=== PATIENT | female | born 1960 | race Caucasian/White ===

== ENCOUNTER 2016-05-05 12:29 | Emergency (ER) | payer OTHER ==
[~2016-05-05] VITALS: Ht 149.9 cm; Wt 106.9 kg
[~2016-05-05 12:29] MED LIST: AZITTAB PO; BENZ1CAP90 PO; NAPROXEN
[2016-05-05 12:50] VITALS: TEMP 37.1; Ht 149.9 cm; Wt 106.9 kg
[2016-05-05] MEDS ORDERED: KETOROLAC TROMETHAMINE 30 MG/ML VIAL IV STA (13:31)
[2016-05-05] MEDS ORDERED: SODIUM CHLORIDE 0.9% 500ML 500 ML IV STA (13:31)
[2016-05-05] MEDS ORDERED: DiphenhydrAMINE HCL 50 MG/ML VIAL IV STA (13:31)
[2016-05-05] MEDS ORDERED: PROCHLORPERAZINE 5 MG/ML 2 ML VIAL IV STA (13:31)
[2016-05-05] MEDS ORDERED: SODIUM CHLORIDE 0.9% 1000ML 1,000 ML IV STA (13:31)
[2016-05-05] MEDS ORDERED: PRLSR20 PO (13:43)
--- NOTE | 2016-05-05 13:57 | EMERGENCY ROOM VISIT NOTE ---
History Report prepared by Jevon: Anthony Glaser Under the Supervision of: Dr. Mary Grace Mosley M.D. First contact with patient: 13:20 Chief Complaint: HEADACHE Stated Complaint: FAINTED, HEADACHE History of Present Illness The patient is a 56 year old female who presents to the Emergency Room after a syncopal episode that occurred prior to arrival. The patient was at [facility] when she started to feel hot and lightheaded. The patient does not remember the episode of fainting, but per patient's she had been standing for about 20 minutes when she passed out and fell to the floor on her side. He denies that the patient hit her head. The patient notes that she had a headache before the episode and still complains of a headache now. She describes the headache as a tension headache and says it feels like something is "squeezing" her head. She also complains of some neck discomfort. The patient notes that she has been under a lot of stress recently and has not been eating or sleeping normally since she is upset. The patient does not recall feeling chest pain or shortness of breath before the episode. She denies any pain at this time. The patient notes that the only time the patient has passed out in the past was when she was a teenager and once when she was . Source of History: patient, spouse/significant other Onset: prior to arrival Position: other (global) Associated Symptoms: + headache, + neck pain, No SOB, No chest pain Note: Other associated symptoms: felt hot, lightheaded, Denies: hitting her head, pain Review of Systems See HPI for pertinent positives & negatives. A total of 10 systems reviewed and were otherwise negative. Past Medical & Surgical Medical Problems: (1) Asthma (2) Bronchitis (3) Hypertension (4) Pneumonia Family History Diabetes mellitus FH: hypertension Social History Smoking Status: Never Smoker Marital Status: Housing Status: other ([facility] temporarily) Occupation Status: employed Current/Historical Medications Scheduled Omeprazole (Prilosec), 20 MG PO DAILY Allergies Coded Allergies: Aspirin (Unverified Allergy, Mild, 05/05/16) Penicillins (Unverified Allergy, Mild, 05/05/16) Tetanus Immune Globulin (Unverified Allergy, Mild, 05/05/16) Uncoded Allergies: KEFLEX (Allergy, Mild, 06/18/07) Physical Exam Vital Signs Date Time Temp Pulse Resp B/P Pulse Ox O2 Delivery O2 Flow Rate FiO2 05/05/16 15:30 73 18 198/115 97 Room Air 05/05/16 15:17 18 168/92 05/05/16 14:57 71 05/05/16 12:50 37.1 74 20 184/117 97 Room Air Physical Exam Vital signs reviewed. General: Well-appearing female, in no significant distress. HEENT: No scleral icterus, PERRLA, neck supple. Atraumatic. Cardiovascular: Regular rate and rhythm, no extra sounds. Pulmonary: Clear to auscultation bilaterally, normal work of breathing. Abdomen: Soft, nontender, nondistended, positive bowel sounds. Musculoskeletal: Atraumatic, no peripheral edema. Mild tenderness along cervical spine without stepoff or deformity. Neurologic: Patient awake alert and oriented x 3, full strength in all 4 extremities. Cranial nerves 2 through 12 grossly intact. Neurologically intact. No meningeal signs. Skin: Warm, dry, no rash Medical Decision & Procedures ER Provider Diagnostic Interpretation: CT results as stated below per my interpretation and radiologist interpretation. Other radiology results as stated below per my review and radiologist interpretation: HEAD CT NONCONTRAST CT DOSE: 1092.12 mGy.cm HISTORY: Mental status change headache TECHNIQUE: Multiaxial CT images of the head were performed without the use of intravenous contrast. Comparison: None. Findings: The paranasal sinuses and mastoid air cells are clear. The calvarium and skull base are intact. The ventricles and sulci are within normal limits. There is no mass, hematoma, midline shift, or acute infarct. Impression: No acute intracranial abnormality. Electronically signed by: Kurt Pimentel M.D. 05/05/2016 2:38 PM Dictated Date/Time: 05/05/2016 2:[address] OF THE CERVICAL SPINE WITHOUT CONTRAST CLINICAL HISTORY: Neck pain after syncope COMPARISON STUDY: No previous studies for comparison. TECHNIQUE: Helical axial images of the cervical spine were obtained without IV contrast. Sagittal and coronal reconstructions were viewed. FINDINGS: There is straightening of the normal cervical lordosis. Craniocervical junction is intact. There is no acute fracture. There is moderate multilevel degenerative disc disease and facet arthrosis of the cervical spine. There is no prevertebral edema. IMPRESSION: No acute cervical spine fracture or subluxation. Electronically signed by: Jorge Ibarra M.D. 05/05/2016 2:48 PM Dictated Date/Time: 05/05/2016 2:39 PM Laboratory Results 05/05/16 12:45 Red Blood Count 5.09, Mean Corpuscular Volume 86.4, Mean Corpuscular Hemoglobin 30.6, Mean Corpuscular Hemoglobin Concent 35.5, Mean Platelet Volume 10.8, Neutrophils (%) (Auto) 72.1, Lymphocytes (%) (Auto) 18.5, Monocytes (%) (Auto) 7.4, Eosinophils (%) (Auto) 1.6, Basophils (%) (Auto) 0.2, Neutrophils # (Auto) 4.50, Lymphocytes # (Auto) 1.15, Monocytes # (Auto) 0.46, Eosinophils # (Auto) 0.10, Basophils # (Auto) 0.01 05/05/16 12:45 Test 05/05/16 12:45 White Blood Count 6.23 K/uL (4.8-10.8) Red Blood Count 5.09 M/uL (4.2-5.4) Hemoglobin 15.6 g/dL (12.0-16.0) Hematocrit 44.0 % (37-47) Mean Corpuscular Volume 86.4 fL (80-100) Mean Corpuscular Hemoglobin 30.6 pg (25-34) Mean Corpuscular Hemoglobin Concent 35.5 g/dl (32-36) Platelet Count 271 K/uL (130-400) Mean Platelet Volume 10.8 fL (7.4-10.4) Neutrophils (%) (Auto) 72.1 % Lymphocytes (%) (Auto) 18.5 % Monocytes (%) (Auto) 7.4 % Eosinophils (%) (Auto) 1.6 % Basophils (%) (Auto) 0.2 % Neutrophils # (Auto) 4.50 K/uL (1.4-6.5) Lymphocytes # (Auto) 1.15 K/uL (1.2-3.4) Monocytes # (Auto) 0.46 K/uL (0.11-0.59) Eosinophils # (Auto) 0.10 K/uL (0-0.5) Basophils # (Auto) 0.01 K/uL (0-0.2) RDW Standard Deviation 44.1 fL (36.4-46.3) RDW Coefficient of Variation 14.0 % (11.5-14.5) Immature Granulocyte % (Auto) 0.2 % Immature Granulocyte # (Auto) 0.01 K/uL (0.00-0.02) Anion Gap 9.0 mmol/L (3-11) Est Creatinine Clear Calc Drug Dose 94.8 ml/min Estimated GFR () 109.6 Estimated GFR (Non- 94.6 BUN/Creatinine Ratio 13.6 (10-20) Calcium Level 9.6 mg/dl (8.5-10.1) Total Bilirubin 0.6 mg/dl (0.2-1) Direct Bilirubin 0.1 mg/dl (0-0.2) Aspartate Amino Transf (AST/SGOT) 10 U/L (15-37) Alanine Aminotransferase (ALT/SGPT) 22 U/L (12-78) Alkaline Phosphatase 111 U/L (45-117) Total Protein 8.2 gm/dl (6.4-8.2) Albumin 4.2 gm/dl (3.4-5.0) Laboratory results per my review. Medications Administered Medications (Trade) Dose Ordered Sig/Deven Route Start Time Stop Time Status Last Admin Dose Admin Sodium Chloride 500 ml @ 999 mls/hr Q31M STAT IV 05/05/16 13:31 05/05/16 14:01 DC 05/05/16 14:20 999 MLS/HR Sodium Chloride (Nss 1000ml) 1,000 ml @ 125 mls/hr Q8H STAT IV 05/05/16 13:31 05/05/16 15:41 DC 05/05/16 14:20 125 MLS/HR Ketorolac Tromethamine (Toradol Inj) 30 mg NOW STAT IV 05/05/16 13:31 05/05/16 13:34 DC 05/05/16 14:20 30 MG ECG Indication: syncope Rate (beats per minute): 66 Rhythm: normal sinus Findings: nonspecific-ST abn (Anterolateral), no acute ischemic change, no ectopy, other (possible previous inferior infarct) ED Course 1322: Past medical records reviewed. The patient was evaluated in room C11. A complete history and physical examination was performed. 1331: Ordered Toradol Inj 30 mg IV, NSS 1000 ml @ 125 mls/hr IV, NSS 500 ml @ 999 mls/hr IV, Benadryl Inj 25 mg IV, Compazine Inj 10 mg IV. 1501: At this time, I reevaluated the patient and she stated that she did not want any pain medication for her headache because she had to drive later today. 1527: Upon reevaluation, I discussed findings with her. She verbalized agreement of the treatment plan. The patient was discharged home. Medical Decision Differential Diagnoses: Etiologies such as vasovagal event, infection, hypoglycemia, electrolyte abnormalities, cardiac sources, intracerebral event, toxicologic, neurologic, syncope, intracranial mass, hemorrhage, seizure, migraine as well as others were entertained. This patient was evaluated and appeared to be in no significant distress. IV access was obtained and laboratory work was drawn. The patient was placed on the cardiac sonographer and found to be in a normal sinus rhythm. Physical examination is fairly unrevealing. CT scan of the head was performed and is negative for acute intracranial pathology. CT scan of the neck is negative for acute fracture or malalignment. Patient refused any medications as she plans to drive. She was hydrated with normal saline solution however did not have significant resolution of her headache. She states it is no worse and no better. The patient feels comfortable with the plan for discharge. She was advised to use Tylenol or ibuprofen as needed for headache. The episode may be situational she is currently living in a homeless assisted. She was advised to contact [facility] for reevaluation, particularly of her headache and blood pressure. She will return to the ER for worsening of symptoms or any medical concerns. Impression Primary Impression: Hypertension Additional Impression: Headache Scribe Attestation The scribe's documentation has been prepared under my direction and personally reviewed by me in its entirety. I confirm that the note above accurately reflects all work, treatment, procedures, and medical decision making performed by me. Departure Information Dispostion Home / Self-Care Referrals No Doctor, Assigned (PCP) Forms HOME CARE DOCUMENTATION FORM, IMPORTANT VISIT INFORMATION Patient Instructions [facility] Additional Instructions Diagnosis: Headache, hypertension Please contact [facility] today to arrange intake evaluation for hypertension and headache. Please minimize sodium in your diet, less than 2 g daily. Drink plenty of water, minimize soda and coffee intake. Return to the emergency department for worsening of symptoms or any medical concerns. Problem Qualifiers Primary Impression: Hypertension Hypertension type: essential hypertension Qualified Codes: I10 - Essential ( primary) hypertension Additional Impression: Headache Headache type: unspecified Headache chronicity pattern: acute headache Intractability: not intractable Qualified Codes: R51 - Headache
[2016-05-05 14:00] LABS: BASO % 0.2 %; BASO ABS # 0.01 K/uL (0-0.2); COMPLETE YES; EOS % 1.6 %; IG% 0.2 %; LYMPH % 18.5 %; LYMPH ABS # 1.15 K/uL (1.2-3.4); MEAN CELL VOLUME 86.4 fL (80-100); MEAN CORPUSCULAR HEMOGLOBIN 30.6 pg (25-34); MEAN CORPUSCULAR HGB CONC 35.5 g/dl (32-36); MEAN PLATELET VOLUME 10.8 fL (7.4-10.4); MONO % 7.4 %; NEUT % 72.1 %; PLATELET COUNT 271 K/uL (130-400); RED BLOOD COUNT 5.09 M/uL (4.2-5.4); WHITE BLOOD COUNT 6.23 K/uL (4.8-10.8)
[2016-05-05 14:16] LABS: BUN/CREATININE RATIO 13.6 (10-20); CALCIUM 9.6 mg/dl (8.5-10.1); CREATININE 0.71 mg/dl (0.60-1.20); POTASSIUM 3.7 mmol/L (3.5-5.1)
--- NOTE | 2016-05-05 14:39 | DIAGNOSTIC IMAGING REPORT ---
HEAD CT NONCONTRAST CT DOSE: 1092.12 mGy.cm HISTORY: Mental status change headache TECHNIQUE: Multiaxial CT images of the head were performed without the use of intravenous contrast. Comparison: None. Findings: The paranasal sinuses and mastoid air cells are clear. The calvarium and skull base are intact. The ventricles and sulci are within normal limits. There is no mass, hematoma, midline shift, or acute infarct. Impression: No acute intracranial abnormality. Electronically signed by: Kurt Pimentel M.D. 05/05/2016 2:38 PM Dictated Date/Time: 05/05/2016 2:37 PM
--- NOTE | 2016-05-05 14:49 | DIAGNOSTIC IMAGING REPORT ---
CT OF THE CERVICAL SPINE WITHOUT CONTRAST CLINICAL HISTORY: Neck pain after syncope COMPARISON STUDY: No previous studies for comparison. TECHNIQUE: Helical axial images of the cervical spine were obtained without IV contrast. Sagittal and coronal reconstructions were viewed. FINDINGS: There is straightening of the normal cervical lordosis. Craniocervical junction is intact. There is no acute fracture. There is moderate multilevel degenerative disc disease and facet arthrosis of the cervical spine. There is no prevertebral edema. IMPRESSION: No acute cervical spine fracture or subluxation. Electronically signed by: Jorge Ibarra M.D. 05/05/2016 2:48 PM Dictated Date/Time: 05/05/2016 2:39 PM
[2016-05-05 15:30] VITALS: BP 198/115; PULSE 73; O2SAT 97
== END 2016-05-05 15:32 | disposition home or self-care (01) ==
LOC: C.EDB 12:33 → C.EDC 15:32
DX: I10 Essential (primary) hypertension (principal); R51 Headache; J45.909 Unspecified asthma, uncomplicated; Z82.49 Family history of ischemic heart disease and other diseases of the circulatory system; Z79.899 Other long term (current) drug therapy

== ENCOUNTER 2024-03-31 16:07 | Inpatient (IN) ==
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
[2024-03-31] MEDS: LABETALOL HCL IV 5 MG/ML 20ML IV STA (16:43)
[2024-03-31] MEDS: fentaNYL citrate PF 100 MCG/2 ML VIAL IV STA (16:44)
[2024-03-31 17:07] LABS: iSTAT Creatinine 1.4 mg/dl (0.6-1.3); iSTAT Hemoglobin 13.3 g/dl (12.0-16.0); iSTAT Ionized Calcium 1.31 mmol/l (1.12-1.32); iSTAT Potassium 5.9 mmol/L (3.3-5.0)
[2024-03-31 17:21] LABS: Basophils # (auto) 0.04 K/uL (0.00-0.20); Basophils % (auto) 0.6 %; Eosinophils # (auto) 0.15 K/uL (0.00-0.50); Eosinophils % (auto) 2.4 %; Hematocrit (blood only) 38.6 % (37.0-47.0); Hemoglobin 12.4 g/dl (12.0-16.0); Immature Granulocytes # (auto) 0.02 K/uL (0.01-0.20); Immature Granulocytes % (auto) 0.3 %; Lymphocytes # (auto) 1.49 K/uL (1.20-3.40); Lymphocytes % (auto) 23.4 %; Mean Corpuscular Hemoglobin 29.2 pg (25.0-34.0); Mean Corpuscular Hgb Conc 32.1 g/dL (32.0-36.0); Mean Platelet Volume 9.9 fL (9.4-12.4); Monocytes # (auto) 0.45 K/uL (0.11-0.59); Monocytes % (auto) 7.1 %; Neutrophils # (auto) 4.21 K/uL (1.40-6.50); Neutrophils % (auto) 66.2 %; Platelet Count 295 K/uL (130-400); RDW Coefficient of Variation 13.3 % (11.5-14.5); RDW Standard Deviation 43.5 fL (36.4-46.3); Red Blood Count 4.24 M/uL (4.20-5.40); White Blood Count 6.36 K/ul (4.8-10.8)
--- NOTE | 2024-03-31 17:47 | XRay Report ---
EXAM: Radiograph of the Chest 1 View INDICATION: Cough. TECHNIQUE: Frontal view of the chest. COMPARISON: 01/12/2023 FINDINGS: Lungs and pleural spaces: No consolidation or pulmonary edema. No pleural effusion or pneumothorax. Heart: Shape and configuration within normal limits allowing for technique. Mediastinum: Stable small to moderate hiatal hernia. Bones/joints: No fracture, erosion or dislocation. Soft tissues: No abnormality noted. No radiopaque foreign body noted. Vasculature: Stable ectatic aorta. Upper abdomen: No abnormality noted. IMPRESSION: No acute cardiopulmonary disease. ACT 112: Negative or not required by law. Electronically signed by Bri Trujillo 03-31-2024 5:44 PM
[2024-03-31 17:48] LABS: Partial Thromboplastin Ratio 1.1; Partial Thromboplastin Time 29 Seconds (21-31); Prothrombin Time 11.2 Seconds (9.0-12.0)
[2024-03-31 17:49] LABS: Troponin I High Sensitivity 4.8 pg/ml (0-14)
[2024-03-31 17:50] LABS: Albumin Globulin Ratio 1.2 (0.9-2); Albumin Level 4.3 gm/dl (3.4-5.0); BUN Creatinine Ratio 16.8 (10-20); Bilirubin,Total 0.3 mg/dl (0.2-1.0); Calcium 10.2 mg/dl (8.6-10.3); Creatinine Clr Calc Pharmacy 42.4 ml/min; Globulin 3.5 gm/dl (2.5-4.0); Potassium 5.9 mmol/L (3.5-5.1); Total Protein 7.8 gm/dl (6.0-8.3)
[2024-03-31] MEDS: SODIUM ZIRCONIUM CYCLOSILICATE 10 GM PACKET PO STA (18:22)
--- NOTE | 2024-03-31 19:16 | History & Physical Report ---
Date of Service March 31, 2024 Assessment & Plan (1) Hyperkalemia: Plan: Secondary to spironolactone without taking her Lokelma Has to continue on spironolactone due to primary hyperaldosteronism which appears to be a legitamate diagnosis best outlined in endocrinology notes although hyperkalemia from spironolactone would suggest overtreatment of her primary hyperaldosteronism attempts at reduction/holding has resulted in significant hypertension Will hold her evening dose to avoid worsening hyperkalemia but plan on restarting tomorrow (2) Primary hyperaldosteronism: Plan: Continue spironolactone 25mg PO BID starting tomorrow as long as potassium is improving Continue her usual other antihypertensives (3) Atypical chest pain: Plan: Non-diagnostic stress echo in November Concerning worsening exertional symptoms Will consult cardiology to assess for pharmacological stress testing although this is not the reason for her admission Plan VTE Prophylaxis - low risk Diet - low potassium Disposition - admit to PCU Admission and Anticipated Discharge Date Admission Date: March 31, 2024 History of Present Illness Chief Complaint: High potassium on outpatient labs Primary Care Provider: MANJIT Camarena Sara Cosby is a 64 year old female with primary hyperaldosteronism on spironolactone who presents to the ER due to outpatient labs showing potassium of 6.5. She reports having problems accessing her supply of Lokelma since the beginning of the month therefore she has not been taking this since then. She also missed a dose of labetalol this morning as she had run out of pills. No muscle weakness, heart palpitations. She has noticed some chest pressure intermittently but this has been ongoing for several months. She has also noticed a newer exertional chest pain for the last month. No nausea or vomiting. Allergies Allergy/AdvReac Type Severity Reaction Status Date / Time aspirin Allergy Mild Unknown Unverified 03/31/24 20:57 tetanus immune globulin Allergy Mild Unknown Unverified 03/31/24 20:57 cephalexin Allergy Unknown Rash Verified 03/31/24 22:16 apixaban [From Eliquis] AdvReac Severe CLOTTING Verified 03/31/24 22:14 DISORDER Home Medications Medication Instructions Recorded Confirmed Type labetalol 100 mg tablet 100 mg PO BID 07/29/22 03/31/24 History metformin 500 mg tablet 500 mg PO BID 08/13/22 03/31/24 History [id number] intramuscular 1 ea IM MONTHLY 09/03/22 03/31/24 History levonorgestrel [Mirena] 1 vag ring intrauterine 09/03/22 03/31/24 History USEASDIRECTD megestrol 40 mg tablet 80 mg PO DAILY 09/03/22 03/31/24 History clonidine HCl 0.2 mg tablet 0.2 mg PO BID 03/10/23 03/31/24 History enoxaparin 100 mg/mL subcutaneous 90 mg subcut Q12H 03/10/23 03/31/24 History syringe (Lovenox) pantoprazole 40 mg tablet,delayed 40 mg PO DAILY 03/27/23 03/31/24 History release (Protonix) amlodipine 10 mg tablet 10 mg PO DAILY 05/01/23 03/31/24 History ascorbic acid (vitamin C) 500 mg 500 mg PO .qod 05/01/23 03/31/24 History tablet (Vitamin C) buspirone 5 mg tablet 15 mg PO DAILY 05/01/23 03/31/24 History ferrous sulfate 325 mg (65 mg 325 mg PO Q OTHER DAY 05/01/23 03/31/24 History iron) tablet spironolactone 25 mg tablet 25 mg PO BID 06/30/23 03/31/24 History trazodone 100 mg tablet 100 mg PO HS 07/20/23 03/31/24 History furosemide 20 mg tablet 20 mg PO Q OTHER DAY PRN edema #15 09/16/23 03/31/24 Rx tabs cholecalciferol (vitamin D3) 25 25 mcg PO DAILY 10/02/23 03/31/24 History mcg (1,000 unit) capsule cyanocobalamin (vitamin B-12) 100 mcg IM Q28D 10/02/23 03/31/24 History 1,000 mcg/mL injection kit cyclobenzaprine 5 mg tablet 5 mg PO TID PRN Muscle Spasm 10/02/23 03/31/24 History famotidine 20 mg tablet 20 mg PO DAILY 10/02/23 03/31/24 History ondansetron 8 mg disintegrating 8 mg PO Q8H 10/02/23 03/31/24 History tablet magnesium chloride 71.5 mg 71.5 mg PO .QOD 10/19/23 03/31/24 History (magnesium chloride) tablet,delayed release (Slow-Mag) atorvastatin 10 mg tablet 10 mg PO QPM #90 tabs 11/24/23 03/31/24 Rx rimegepant 75 mg disintegrating 75 mg PO Q OTHER DAY PRN Migraine 03/31/24 03/31/24 History tablet Headache sodium zirconium cyclosilicate 10 10 g PO .COMPLEX #30 ea 03/31/24 03/31/24 Rx gram oral powder packet (Lokelma) Past Med/Surg History Problem List (Updated 03/31/24 @ 19:37 by Arnaud Lau MD) Hyperkalemia Atypical chest pain Chronic anticoagulation Antiphospholipid antibody syndrome Lumbosacral radiculopathy Hypercalcemia Chronic SI joint pain Obesity Chronic lower back pain Myofascial pain (Acute) Sciatic leg pain Positive ROSA (antinuclear antibody) Hypertension (Chronic) Primary hyperaldosteronism Asthma (Chronic) Medical History Positive colorectal cancer screening using Cologuard test Endometrial hyperplasia Abnormal mammogram PTSD (post-traumatic stress disorder) Depression Prediabetes Surgical History H/O dilation and curettage H/O breast biopsy Family History Mother Ovarian cancer Father Kidney disease Social History Smoking Status: Never smoker Second Hand Exposure: No; Do You Dip or Chew Tobacco: No; Tobacco Cessation Education Requested by Patient: No Hx Alcohol Use: Yes Alcohol type: beer Alcohol Intake Frequency Comment: rarely Hx Substance Use: No Preferred Language: Upper Sorbian Communication Ability: Effective Cotton Weigher Required: No Beliefs That Will Affect Care: Cultural Cultural Beliefs: refuses pork products Current Living Situation: Spouse current occupational status: employed Other Information That Helps Us Care for You: No Feels Safe at Home: Yes Safety Concerns: Feels Safe At This Time Physical Activity Frequency: Does not Exercise Seatbelt Use: always Assistive Devices: Glasses Review of Systems Review of Systems: All systems reviewed & are unremarkable except as noted in HPI & below Physical Exam Constitutional: WD/WN, vitals as above Respiratory: normal respiratory effort, lungs clear to auscultation Cardiovascular: Rate/Rhythm: regular rhythm and + tachycardic Heart Sounds: no murmur Extremities: normal capillary refill; no calf tenderness and no pedal edema Gastrointestinal (Abdomen): normal bowel sounds, soft, nontender, no hepatosplenomegaly Skin: no rashes, warm and dry Neurologic: moves all extremities and awake; not confused Psychiatric: A+Ox3, euthymic affect Results & Data Results & Data Vital Signs (Past 12 Hours) Vital Signs Temp Pulse Pulse Resp BP BP Pulse Ox 03/31/24 18:08 76 16 140/76 97 03/31/24 17:09 120 H 155/104 H 03/31/24 16:58 77 18 99 03/31/24 16:58 79 18 174/109 H 99 03/31/24 16:43 94 H 174/109 H 03/31/24 16:37 111 H 03/31/24 16:10 36.5 C 109 H 18 188/98 H 99 O2 Del Method 03/31/24 18:08 Room Air 03/31/24 17:09 03/31/24 16:58 Room Air 03/31/24 16:58 03/31/24 16:43 03/31/24 16:37 03/31/24 16:10 Room Air Laboratory Results Labs reviewed Diagnostic Findings Radiograph of the Chest 1 View INDICATION: Cough. TECHNIQUE: Frontal view of the chest. COMPARISON: 01/12/2023 FINDINGS: Lungs and pleural spaces: No consolidation or pulmonary edema. No pleural effusion or pneumothorax. Heart: Shape and configuration within normal limits allowing for technique. Mediastinum: Stable small to moderate hiatal hernia. Bones/joints: No fracture, erosion or dislocation. Soft tissues: No abnormality noted. No radiopaque foreign body noted. Vasculature: Stable ectatic aorta. Upper abdomen: No abnormality noted. IMPRESSION: No acute cardiopulmonary disease. Medications Administered ER Medications Given: Labetalol 10mg IV Fentanyl 25 mcg IV Code Status & VTE Plan Code Status All treatment except for intubation and artificial ventilation VTE Prophylaxis Plan VTE Prophylaxis will be ordered: Yes PG Care Time/CCT Total # of Minutes Spent Total Time Spent with Patient: Total time spent is greater than 50% in coordination of care (as documented) at patient's floor/unit and/or counseling patient: Coding Level of Care Code 64853 INT INP/OBS CARE MIN Diagnoses Hyperkalemia E87.5 Primary hyperaldosteronism E26.09 Atypical chest pain R07.89
[2024-03-31] MEDS: ENOXAPARIN 100 MG/1ML SYR SQ SCH (22:44)
[2024-03-31] MEDS: cloNIDine HCL 0.1 MG TAB PO SCH (22:45)
[2024-03-31] MEDS: SODIUM BICARBONATE 650 MG TAB PO SCH (22:45)
[2024-03-31] MEDS: LABETALOL HCL 100 MG TAB PO SCH (22:46)
[2024-03-31] MEDS: traZODone HCL 100 MG TAB PO SCH (22:47)
[2024-03-31] MEDS: SODIUM ZIRCONIUM CYCLOSILICATE 10 GM PACKET PO SCH (22:47)
[2024-04-01 07:37] LABS: Blood Urea Nitrogen 23 mg/dl (6-23); Calcium 9.4 mg/dl (8.6-10.3); Carbon Dioxide 19 mmol/L (21-32); Chloride 111 mmol/L (98-107); Creatinine Clr Calc Pharmacy 45.6 ml/min; Glucose 97 mg/dl (70-99(Fasting))
[2024-04-01] MEDS: MEGESTROL ACETATE 40 MG TAB PO SCH (07:48)
[2024-04-01] MEDS: SPIRONOLACTONE 25 MG TAB PO SCH (07:48)
[2024-04-01] MEDS: busPIRone 15 MG TAB PO SCH (07:49)
[2024-04-01] MEDS: PANTOprazole 40 MG TAB PO SCH (07:49)
[2024-04-01] MEDS: FAMOTIDINE 20 MG TAB PO SCH (07:49)
[2024-04-01] MEDS: amLODIPine BESYLATE 5 MG TAB PO SCH (07:49)
[2024-04-01] MEDS: ACETAMINOPHEN 325 MG TAB PO PRN (07:59)
[2024-04-01 08:45] LABS: Potassium 5.3 mmol/L (3.5-5.1)
--- NOTE | 2024-04-01 10:11 | Nephrology Consultation ---
Date of Consultation April 01, 2024 Assessment & Plan (1) Hyperkalemia: (2) Atypical chest pain: (3) Hypercalcemia: (4) Primary hyperaldosteronism: (5) Hypertension: Plan 64 y o F with stage IIIb CKD baseline creatinine 1.3-1.5 mg/dl with history of hypertension and primary hyperaldosteronism. Admitted with CP and outpatient labs showing hyperkalemia after missing Lokelma for more than a week while taking spironolactone for primary hyperaldosteronism. Blood pressure initially was elevated which rapidly improved and has been staying relatively low. Also has been noticing some chest pain but EKG, troponin was unremarkable. Blood pressure improved, volume status acceptable. Kidney function staying relatively stable, potassium improved and down to 5.3. --Since blood pressure improved rapidly and potassium above normal range while getting Lokelma, reasonable to try decreasing spironolactone to 25 mg once a day --Continue on Lokelma 10 g daily --Maintain on low potassium diet Thank you for allowing me to participate in your patient's care. It was a pleasure to see Sara. History of Present Illness Reason for Consultation: Hyperkalemia, stage 3A/B CKD Attending Physician: Arnaud Lau MD History of Present Illness Ms. Sara Cosby is a 64 year-old female with stage 3 A/B CKD, hypertension, primary hyperaldosteronism, antiphospholipid syndrome admitted to the hospital with chest pain and outpatient lab showing hyperkalemia. Nephrology consult requested for management of hyperkalemia. EMR records were reviewed in detail during patient's visit. Katlyn presented to the ER with outpatient labs showing potassium of 6.5. She has been taking Lokelma 3 times a day but she missed taking it for last more than a week as she ran out of her prescription and she was locked out of her apartment. She also missed a dose of labetalol yesterday as she had run out of pills. She denied any palpitation, weakness but noticed intermittent chest pain and pressure. Initially her blood pressure was elevated which rapidly improved and in fact blood pressures staying relatively low. Lab was notable for stable kidney function, creatinine 1.3-1.4., Potassium was 6.5, she received Lokelma and potassium improved to 5.9. Bicarbonate was 19. History of mild hypercalc emia, calcium was 10.5 on admission, improved to 9.4. Hemoglobin 13.3. Chest x-ray was otherwise unremarkable. EKG with sinus tachycardia, no ST-T changes. Troponin was normal. Never smoker. Retired. No pertinent family history. She was diagnosed with primary hyper aldosteronism after she was noted to have accelerated hypertension, hypokalemia and other supportive serological evaluation. CT abdomen pelvis showed normal adrenal gland. No adrenal vein sampling was done. Renal ultrasound with no evidence of renal artery stenosis. Morning cortisol levels have been normal and dexamethasone suppression was demonstrated AM cortisol sufficiently suppressed. 24 hour urine for metanephrines did not demonstrate evidence of pheochromocytoma. She was started on spironolactone with significant improvement in blood pressure however that was complicated by hyperkalemia and she was started on Lokelma which she has been taking 3 times a week. Spironolactone dose was decreased to 25 mg twice a day. She could not be taken off of spironolactone because of accelerated hypertension and hypokalemia. Past medical history also significant for antiphospholipid syndrome for which she has been on Lovenox. She continues to notice crushing chest pain and occasionally tachycardic. Blood pressures staying very well-controlled in fact has been low. Allergies Allergy/AdvReac Type Severity Reaction Status Date / Time aspirin Allergy Mild Unknown Unverified 03/31/24 20:57 tetanus immune globulin Allergy Mild Unknown Unverified 03/31/24 20:57 cephalexin Allergy Unknown Rash Verified 03/31/24 22:16 apixaban [From Eliquis] AdvReac Severe CLOTTING Verified 03/31/24 22:14 DISORDER Home Medications Medication Instructions Recorded Confirmed Type labetalol 100 mg tablet 100 mg PO BID 07/29/22 03/31/24 History metformin 500 mg tablet 500 mg PO BID 08/13/22 03/31/24 History [id number] intramuscular 1 ea IM MONTHLY 09/03/22 03/31/24 History levonorgestrel [Mirena] 1 vag ring intrauterine 09/03/22 03/31/24 History USEASDIRECTD megestrol 40 mg tablet 80 mg PO DAILY 09/03/22 03/31/24 History clonidine HCl 0.2 mg tablet 0.2 mg PO BID 03/10/23 03/31/24 History enoxaparin 100 mg/mL subcutaneous 90 mg subcut Q12H 03/10/23 03/31/24 History syringe (Lovenox) pantoprazole 40 mg tablet,delayed 40 mg PO DAILY 03/27/23 03/31/24 History release (Protonix) amlodipine 10 mg tablet 10 mg PO DAILY 05/01/23 03/31/24 History ascorbic acid (vitamin C) 500 mg 500 mg PO .qod 05/01/23 03/31/24 History tablet (Vitamin C) buspirone 5 mg tablet 15 mg PO DAILY 05/01/23 03/31/24 History ferrous sulfate 325 mg (65 mg 325 mg PO Q OTHER DAY 05/01/23 03/31/24 History iron) tablet spironolactone 25 mg tablet 25 mg PO BID 06/30/23 03/31/24 History trazodone 100 mg tablet 100 mg PO HS 07/20/23 03/31/24 History furosemide 20 mg tablet 20 mg PO Q OTHER DAY PRN edema #15 09/16/23 03/31/24 Rx tabs cholecalciferol (vitamin D3) 25 25 mcg PO DAILY 10/02/23 03/31/24 History mcg (1,000 unit) capsule cyanocobalamin (vitamin B-12) 100 mcg IM Q28D 10/02/23 03/31/24 History 1,000 mcg/mL injection kit cyclobenzaprine 5 mg tablet 5 mg PO TID PRN Muscle Spasm 10/02/23 03/31/24 History famotidine 20 mg tablet 20 mg PO DAILY 10/02/23 03/31/24 History ondansetron 8 mg disintegrating 8 mg PO Q8H 10/02/23 03/31/24 History tablet magnesium chloride 71.5 mg 71.5 mg PO .QOD 10/19/23 03/31/24 History (magnesium chloride) tablet,delayed release (Slow-Mag) atorvastatin 10 mg tablet 10 mg PO QPM #90 tabs 11/24/23 03/31/24 Rx rimegepant 75 mg disintegrating 75 mg PO Q OTHER DAY PRN Migraine 03/31/24 03/31/24 History tablet Headache sodium zirconium cyclosilicate 10 10 g PO .COMPLEX #30 ea 03/31/24 03/31/24 Rx gram oral powder packet (Lokelma) Patient History Medical History Positive colorectal cancer screening using Cologuard test Endometrial hyperplasia Abnormal mammogram PTSD (post-traumatic stress disorder) Depression Prediabetes Surgical History H/O dilation and curettage H/O breast biopsy Family History Mother Ovarian cancer Father Kidney disease Social History Smoking Status: Never smoker Second Hand Exposure: No; Do You Dip or Chew Tobacco: No; Tobacco Cessation Education Requested by Patient: No Hx Alcohol Use: Yes Alcohol type: beer Alcohol Intake Frequency Comment: rarely Hx Substance Use: No Preferred Language: Tajik Communication Ability: Effective Generator Mechanic Required: No Beliefs That Will Affect Care: Cultural Cultural Beliefs: refuses pork products Current Living Situation: Spouse current occupational status: employed Other Information That Helps Us Care for You: No Feels Safe at Home: Yes Safety Concerns: Feels Safe At This Time Physical Activity Frequency: Does not Exercise Seatbelt Use: always Assistive Devices: None Review of Systems Review of Systems: Detailed review of system was done and pertinent positives and negatives are mentioned above. Physical Exam Constitutional: WD/WN, vitals as above no acute distress Eyes: + anicteric sclerae Neck: normal visual inspection Respiratory: no respiratory distress Auscultation: lungs clear to auscultation bilaterally Cardiovascular: Rate/Rhythm: regular rate and regular rhythm Heart Sounds: normal S1 and normal S2 Extremities: no edema Gastrointestinal (Abdomen): Inspection/Auscultation: abdomen normal to inspection Musculoskeletal: Extremities: extremities normal to inspection Skin: no rashes, warm and dry Neurologic: no focal motor deficits Psychiatric: Orientation: alert and oriented x 3 Affect: euthymic affect Results & Data Vital Signs (Past 12 Hours) Vital Signs Temp Pulse Pulse Resp BP Pulse Ox O2 Del Method 04/01/24 08:00 36.8 C 85 16 109/71 93 Room Air 04/01/24 04:45 36.5 C 67 18 115/73 97 Room Air 03/31/24 23:59 36.8 C 77 18 100/64 97 Room Air 03/31/24 23:48 Room Air 03/31/24 23:46 74 03/31/24 22:25 36.5 C 89 18 125/71 96 Room Air PG Care Time/CCT Total # of Minutes Spent Total Time Spent with Patient: Total time spent is greater than 50% in coordination of care (as documented) at patient's floor/unit and/or counseling patient: Coding Level of Care Code 97703 INT INP/OBS CARE 3/75MIN Diagnoses Hyperkalemia E87.5 Atypical chest pain R07.89 Hypercalcemia E83.52 Primary hyperaldosteronism E26.09 Hypertension I10
--- NOTE | 2024-04-01 14:48 | Cardiology Consultation ---
Date of Consultation April 01, 2024 Assessment & Plan (1) Atypical chest pain: Plan 1. Chest pain: I believe her chest pain is noncardiac. It has been present for a long time, she has had a nuclear stress test just under 2 years ago, a submaximal treadmill stress echo 6 months ago and a pharmacologic stress test today all of which were negative for ischemia. Her chest discomfort was present for several days on presentation with no ischemic electrocardiographic changes a nd no troponin elevation. These test do not prove that she does not have coronary artery disease but I think it is very unlikely that she has ischemia as a cause of her symptoms. I would not pursue further evaluation at this time, I do want to repeat the electrocardiogram but the echo does not show any anterior wall motion abnormality to correlate with that suggestion on electrocardiography. History of Present Illness Reason for Consultation: Chest pain Attending Physician: Arnaud Lau MD History of Present Illness This is a 63-year-old diabetic female with a history of inherited thrombophilia (antiphospholipid antibody syndrome), DVT and large pulmonary embolism, primary hyperaldosteronism, hyperkalemia, and hypertension. She follows with [facility]ology as well as [facility] nephrology. She previously has seen [facility] [place] (Dr. Mayberry), but more recently saw Dr. Moore in our office. In June 2022 she had an echocardiogram demonstrating EF of 60%, grade 1 diastolic dysfunction, mild LVH, mild mitral and tricuspid regurgitation, and mild left atrial enlargement. PA systolic pressure at that time was 34 mmHg. She also had a Lexiscan stress MPI which was negative for ischemia. She had a large fixed anterior defect that they felt was secondary to breast attenuation shadow. This study was done for pleuritic type chest pain. The studies were done in [place]. When she saw Dr. Moore October 19, 2023 she was describing chest tightness and shortness of breath which appeared to be somewhat exertional in nature and also associated with emotional stress. Although the discomfort had a pleuritic component a stress echo was done on November 26, 2023. This was technically nondiagnostic because she only be 75% of her maximal predicted heart rate, a pharmacologic study was suggested but was not done. She presented to the emergency room on March 31, 2024 with hyperkalemia and atypical chest discomfort. She describes what continues to be a pleuritic type chest discomfort, and she even notes that when she presses on the lower portion of her sternum she has improvement. She tells me that the symptoms have been almost continuous for several days and are located in the precordial area. There is no radiation pattern. The symptoms have been worse with exertion or emotional upset, as they have been in the past. Evaluation on presentation here included an electrocardiogram which suggested an anterior infarct due to a Q wave in V3, this was quite different than in June 2023. There were no acute changes. This was not repeated but I suspect lead position issues. She did have high-sensitivity troponin performed and this was negative on presentation. A chest x-ray on presentation was negative for acute disease. She did have an ectatic aorta. Allergies Allergy/AdvReac Type Severity Reaction Status Date / Time aspirin Allergy Mild Unknown Unverified 03/31/24 20:57 tetanus immune globulin Allergy Mild Unknown Unverified 03/31/24 20:57 cephalexin Allergy Unknown Rash Verified 03/31/24 22:16 apixaban [From Eliquis] AdvReac Severe CLOTTING Verified 03/31/24 22:14 DISORDER Home Medications Medication Instructions Recorded Confirmed Type labetalol 100 mg tablet 100 mg PO BID 07/29/22 03/31/24 History metformin 500 mg tablet 500 mg PO BID 08/13/22 03/31/24 History [id number] intramuscular 1 ea IM MONTHLY 09/03/22 03/31/24 History levonorgestrel [Mirena] 1 vag ring intrauterine 09/03/22 03/31/24 History USEASDIRECTD megestrol 40 mg tablet 80 mg PO DAILY 09/03/22 03/31/24 History clonidine HCl 0.2 mg tablet 0.2 mg PO BID 03/10/23 03/31/24 History enoxaparin 100 mg/mL subcutaneous 90 mg subcut Q12H 03/10/23 03/31/24 History syringe (Lovenox) pantoprazole 40 mg tablet,delayed 40 mg PO DAILY 03/27/23 03/31/24 History release (Protonix) amlodipine 10 mg tablet 10 mg PO DAILY 05/01/23 03/31/24 History ascorbic acid (vitamin C) 500 mg 500 mg PO .qod 05/01/23 03/31/24 History tablet (Vitamin C) buspirone 5 mg tablet 15 mg PO DAILY 05/01/23 03/31/24 History ferrous sulfate 325 mg (65 mg 325 mg PO Q OTHER DAY 05/01/23 03/31/24 History iron) tablet spironolactone 25 mg tablet 25 mg PO BID 06/30/23 03/31/24 History trazodone 100 mg tablet 100 mg PO HS 07/20/23 03/31/24 History furosemide 20 mg tablet 20 mg PO Q OTHER DAY PRN edema #15 09/16/23 03/31/24 Rx tabs cholecalciferol (vitamin D3) 25 25 mcg PO DAILY 10/02/23 03/31/24 History mcg (1,000 unit) capsule cyanocobalamin (vitamin B-12) 100 mcg IM Q28D 10/02/23 03/31/24 History 1,000 mcg/mL injection kit cyclobenzaprine 5 mg tablet 5 mg PO TID PRN Muscle Spasm 10/02/23 03/31/24 History famotidine 20 mg tablet 20 mg PO DAILY 10/02/23 03/31/24 History ondansetron 8 mg disintegrating 8 mg PO Q8H 10/02/23 03/31/24 History tablet magnesium chloride 71.5 mg 71.5 mg PO .QOD 10/19/23 03/31/24 History (magnesium chloride) tablet,delayed release (Slow-Mag) atorvastatin 10 mg tablet 10 mg PO QPM #90 tabs 11/24/23 03/31/24 Rx rimegepant 75 mg disintegrating 75 mg PO Q OTHER DAY PRN Migraine 03/31/24 03/31/24 History tablet Headache sodium zirconium cyclosilicate 10 10 g PO .COMPLEX #30 ea 03/31/24 03/31/24 Rx gram oral powder packet (Lokelma) Patient History Medical History Positive colorectal cancer screening using Cologuard test Endometrial hyperplasia Abnormal mammogram PTSD (post-traumatic stress disorder) Depression Prediabetes Surgical History H/O dilation and curettage H/O breast biopsy Family History Mother Ovarian cancer Father Kidney disease Social History Smoking Status: Never smoker Second Hand Exposure: No; Do You Dip or Chew Tobacco: No; Tobacco Cessation Education Requested by Patient: No Hx Alcohol Use: Yes Alcohol type: beer Alcohol Intake Frequency Comment: rarely Hx Substance Use: No Preferred Language: Kyrgyz Communication Ability: Effective Business Line Controller Required: No Beliefs That Will Affect Care: Cultural Cultural Beliefs: refuses pork products Current Living Situation: Spouse current occupational status: employed Other Information That Helps Us Care for You: No Feels Safe at Home: Yes Safety Concerns: Feels Safe At This Time Physical Activity Frequency: Does not Exercise Seatbelt Use: always Assistive Devices: None Review of Systems Review of Systems: All systems reviewed & are unremarkable except as noted in HPI & below Physical Exam Physical Exam: Constitutional: Alert, cooperative and in no distress. HEENT: Unremarkable Neck: No jugular venous distention, carotid pulses are normal and equal bilaterally without bruits. Pulmonary: Clear to auscultation bilaterally. Cardiac: Regular rhythm with no murmur, gallop or rub. Abdomen: Soft, nontender with normal bowel sounds. Extremities: No edema. Neurologic: No focal findings. Skin: No rash, ecchymoses or petechiae. Results & Data Vital Signs (Past 12 Hours) Vital Signs Temp Pulse Resp BP Pulse Ox O2 Del Method 04/01/24 12:00 36.7 C 68 16 113/71 97 Room Air 04/01/24 08:00 36.8 C 85 16 109/71 93 Room Air 04/01/24 04:45 36.5 C 67 18 115/73 97 Room Air Laboratory Results Cardiac Enzymes 03/31/24 Range/Units 16:48 AST 17 (13-39) U/L Troponin I High Sens 4.8 (0-14) pg/ml Coagulation 03/31/24 Range/Units 16:48 PT 11.2 (9.0-12.0) Seconds APTT 29 (21-31) Seconds CBC 03/31/24 Range/Units 16:48 WBC 6.36 (4.8-10.8) K/ul RBC 4.24 (4.20-5.40) M/uL Hgb 12.4 (12.0-16.0) g/dl Hct 38.6 (37.0-47.0) % Plt Count 295 (130-400) K/uL Neut # (Auto) 4.21 (1.40-6.50) K/uL Lymph # (Auto) 1.49 (1.20-3.40) K/uL [place] # (Auto) 0.45 (0.11-0.59) K/uL Eos # (Auto) 0.15 (0.00-0.50) K/uL Baso # (Auto) 0.04 (0.00-0.20) K/uL Comprehensive Metabolic Panel 03/31/24 04/01/24 04/01/24 Range/Units 16:48 05:29 07:43 Sodium 135 L TNP 136 (136-145) mmol/L Potassium 5.9 H TNP 5.3 H (3.5-5.1) mmol/L Chloride 110 H 111 H (98-107) mmol/L Carbon Dioxide 17 L 19 L (21-32) mmol/L BUN 23 23 (6-23) mg/dl Creatinine 1.37 H 1.28 H (0.6-1.2) mg/dl Glucose 147 H 97 (70-99(Fasting)) mg/dl Calcium 10.2 9.4 (8.6-10.3) mg/dl AST 17 (13-39) U/L ALT 11 (7-52) U/L Alkaline Phosphatase 66 (34-104) U/L Total Protein 7.8 (6.0-8.3) gm/dl Albumin 4.3 (3.4-5.0) gm/dl Intake and Output 03/31/24 04/01/24 04/01/24 22:59 06:59 14:59 Intake Total 600 / 600 Output Total 0 / 0 Balance 600 / 600 Intake: Oral 600 / 600 Output: Urine 0 / 0 Other: Weight 99.2 kg 99.932 kg Weight Measurement Method Standing Scale Built in [facility] Diagnostic Findings Telemetry: Sinus rhythm, rate 60-70 in general. No significant arrhythmias. Dobutamine stress echo: By my reading no significant abnormality with appropriate augmentation, formal report pending. PG Care Time/CCT Total # of Minutes Spent Total Time Spent with Patient: Total time spent is greater than 50% in coordination of care (as documented) at patient's floor/unit and/or counseling patient: Coding Level of Care Code 60814 INT INP/OBS CARE MIN Diagnoses Atypical chest pain R07.89
--- NOTE | 2024-04-01 16:28 | XCELERA ---
[id number] [email or web address]\[id number]
--- NOTE | 2024-04-01 17:18 | Electrocardiogram Report ---
Test Reason : Blood Pressure : */* mmHG Vent. Rate : 104 BPM Atrial Rate : 104 BPM P-R Int : 162 ms QRS Dur : 80 ms QT Int : 324 ms P-R-T Axes : 48 32 58 degrees QTcB Int : 426 ms Sinus tachycardia Anterior infarct , age undetermined , may be lead placement Abnormal ECG When compared with ECG of 24-Jun-2023 12:28, (unconfirmed) Vent. rate has increased by 44 bpm Criteria for Anterior infarct is now Present Confirmed by Petros Harrington ([id number]) on 04/01/2024 5:18:04 PM Referred By: Confirmed By: Petros Harrington
--- NOTE | 2024-04-01 18:01 | Hospitalist Progress Note ---
Date of Service April 01, 2024 Assessment & Plan (1) Hyperkalemia: Plan: Secondary to spironolactone without taking her Lokelma Potassium down to 5.3 from 6.5 with Lokelma 10g TID, will need probably daily dose on discharge with close follow up Spironolactone reduced to 25mg PO once daily which appears reasonable as long her BP stays stable on this Monitor with AM labs Anticipated discharge home tomorrow (2) Primary hyperaldosteronism: Plan: Continue spironolactone 25mg PO daily Continue her usual other antihypertensives (3) Atypical chest pain: Plan: Dobutamine stress echo negative Appreciate cardiology consult - no further workup required Possibly some chest pain related to her hyperkalemia Plan VTE Prophylaxis - low risk Diet - low potassium Disposition - admit to PCU Admission and Anticipated Discharge Date Admission Date: March 31, 2024 Subjective Ongoing chest pressure but not had her exertional chest pain. Otherwise at her baseline. Eating and drinking well BP well controlled Physical Exam Constitutional: WD/WN, vitals as above Respiratory: normal respiratory effort, lungs clear to auscultation Cardiovascular: Rate/Rhythm: regular rhythm and + tachycardic Heart Sounds: no murmur Extremities: normal capillary refill; no calf tenderness and no pedal edema Gastrointestinal (Abdomen): normal bowel sounds, soft, nontender, no hepatosplenomegaly Skin: no rashes, warm and dry Neurologic: moves all extremities and awake; not confused Psychiatric: A+Ox3, euthymic affect Results & Data Results & Data Vital Signs (Past 12 Hours) Vital Signs Temp Pulse Resp BP Pulse Ox O2 Del Method 04/01/24 15:00 37.1 C 70 17 124/71 98 Room Air 04/01/24 12:00 36.7 C 68 16 113/71 97 Room Air 04/01/24 08:00 36.8 C 85 16 109/71 93 Room Air Laboratory Results Abnormal lab results 04/01/24 04/01/24 Range/Units 05:29 07:43 Potassium 5.3 H (3.5-5.1) mmol/L Chloride 111 H (98-107) mmol/L Carbon Dioxide 19 L (21-32) mmol/L Creatinine 1.28 H (0.6-1.2) mg/dl PG Care Time/CCT Total # of Minutes Spent Total Time Spent with Patient: Total time spent is greater than 50% in coordination of care (as documented) at patient's floor/unit and/or counseling patient: Coding Level of Care Code 66111 SUB INP/OBS CARE 350MIN Diagnoses Hyperkalemia E87.5 Primary hyperaldosteronism E26.09 Atypical chest pain R07.89
[2024-04-01] MEDS: METOPROLOL TARTRATE 1 MG/ML VIAL IV ONE (19:02)
[2024-04-01] MEDS: DOBUTamine HCL 12.5 MG/ML 20 ML VIAL IV ONE (19:02)
[2024-04-01] MEDS: ATROPINE SULFATE 0.1 MG/ML 10ML SYR IV ONE (19:02)
[2024-04-01] MEDS: ATORVASTATIN 10 MG TAB PO SCH (19:46)
[2024-04-02 02:50] VITALS: RESP 18
[2024-04-02 07:19] VITALS: BP 128/76; PULSE 65; TEMP 98.8; O2SAT 97
[2024-04-02 07:57] LABS: BUN Creatinine Ratio 20.8 (10-20); Calcium 9.2 mg/dl (8.6-10.3); Creatinine Clr Calc Pharmacy 44.9 ml/min; Potassium 3.8 mmol/L (3.5-5.1)
[2024-04-02] MEDS: SPIRONOLACTONE 25 MG TAB PO SCH (08:04)
[2024-04-02] MEDS: INFLUENZA VACC TS2024-25(65y+)/PF (IIV3) 0.5mL Syr IM ONE (08:58)
--- NOTE | 2024-04-02 10:29 | Discharge Summary ---
Discharge Summary Date of Service April 02, 2024 Principal Dx & Hospital Course #1 = Principal Diagnosis (1) Hyperkalemia: Secondary to spironolactone without taking her Lokelma Potassium down to 5.3 from 6.5 with Lokelma 10g TID, will need probably daily dose on discharge with close follow up Spironolactone reduced to 25mg PO once daily which appears reasonable as long her BP stays stable on this Monitor with AM labs Anticipated discharge home tomorrow (2) Primary hyperaldosteronism: Continue spironolactone 25mg PO daily Continue her usual other antihypertensives (3) Atypical chest pain: Dobutamine stress echo negative Appreciate cardiology consult - no further workup required Possibly some chest pain related to her hyperkalemia Plan VTE Prophylaxis - low risk Diet - low potassium Disposition - admit to PCU Admission HPI Per Admitting Provider Sara Cosby is a 64 year old female with primary hyperaldosteronism on spironolactone who presents to the ER due to outpatient labs showing potassium of 6.5. She reports having problems accessing her supply of Lokelma since the beginning of the month therefore she has not been taking this since then. She also missed a dose of labetalol this morning as she had run out of pills. No muscle weakness, heart palpitations. She has noticed some chest pressure intermittently but this has been ongoing for several months. She has also noticed a newer exertional chest pain for the last month. No nausea or vomiting. Discharge Plan Discharge Items Patient Disposition: Home - Self-Care Reason For Visit: HYPERKALEMIA Discharge Diagnosis: hyperkalemia Activity: Resume your previous activity Non-emergency contact: Primary Care Provider Call non-emergency contact if: you have any medication questions Follow-up/Referrals: Camille Montenegro CRNP [Primary Care Provider] - Diet: Low Potassium (2gm) Addtl Attending Provider Instructions: Resume Lokelma every other day. Next dose Thursday. Cut back spironolactone to once daily. Pending Studies at Discharge: No Stand-Alone Forms: [employer], Smoking Cessation Medications and DC Order Prescriptions: Continued furosemide 20 mg tablet 20 mg PO Q OTHER DAY PRN (Reason: edema) Qty: 15 2RF enoxaparin [Lovenox] 100 mg/mL syringe 90 mg subcut Q12H clonidine HCl 0.2 mg tablet 0.2 mg PO BID pantoprazole [Protonix] 40 mg tablet,delayed release (DR/EC) 40 mg PO DAILY metformin 500 mg tablet 500 mg PO BID [id number] Injectable 1 ea IM MONTHLY amlodipine 10 mg tablet 10 mg PO DAILY ferrous sulfate 325 mg (65 mg iron) tablet 325 mg PO Q OTHER DAY ascorbic acid (vitamin C) [Vitamin C] 500 mg tablet 500 mg PO .qod labetalol 100 mg tablet 100 mg PO BID trazodone 100 mg tablet 100 mg PO HS megestrol 40 mg tablet 80 mg PO DAILY levonorgestrel [Mirena] 1 vag ring intrauterine USEASDIRECTD buspirone 5 mg tablet 15 mg PO DAILY Rx Instructions: 1 am 2 pm Slow-Mag 71.5 mg tablet,delayed release (DR/EC) 71.5 mg PO .QOD cyanocobalamin (vitamin B-12) 1,000 mcg/mL kit 100 mcg IM Q28D famotidine 20 mg tablet 20 mg PO DAILY cyclobenzaprine 5 mg tablet 5 mg PO TID PRN (Reason: Muscle Spasm) ondansetron 8 mg tablet,disintegrating 8 mg PO Q8H cholecalciferol (vitamin D3) 25 mcg (1,000 unit) capsule 25 mcg PO DAILY atorvastatin 10 mg tablet 10 mg PO QPM Qty: 90 2RF rimegepant 75 mg Tablet,Disintegrating 75 mg PO Q OTHER DAY PRN (Reason: Migraine Headache) Lokelma 10 gram powder in packet 10 g PO .COMPLEX Qty: 30 2RF Rx Instructions: 10 grams orally every other day; Changed spironolactone 25 mg tablet 25 mg PO DAILY Qty: 30 0RF Discharge Orders: Discharge Order (Routine); Ordered 04/02/24 Ordered By: Gibran Cardenas Admission Data Admit Date/Time: 03/31/24 19:12 Attending Provider: Gibran Cardenas Admit Provider: Arnaud Lau Primary Care Provider: Camille Montenegro Other Providers: Arnaud Lau; Nazia Armstrong; Petros Harrington Hospital Stay Data Consultations 03/31/24 18:00 ED Decision to Admit Stat 03/31/24 18:05 Consult Nephrology Routine 04/01/24 09:53 Consult Cardiology Routine Pending Results Patient Have Any Pending Studies at Discharge: No Discharge Instructions Given to Patient (Per Discharging Provider) Resume Lokelma every other day. Next dose Thursday. Cut back spironolactone to once daily. Coding Diagnoses Hyperkalemia E87.5 Primary hyperaldosteronism E26.09 Atypical chest pain R07.89
--- NOTE | 2024-04-02 10:46 | Nephrology Progress Note ---
Date of Service April 02, 2024 Assessment & Plan (1) Hyperkalemia: Plan: Improved. Dietary goals reviewed. Continue Lokelma QOD. Repeat labs in ~1 week. Follow up with me in the [facility] nephrology clinic in [place] within the next few weeks. (2) Atypical chest pain: Plan: Reassuring cardiac evaluation. Symptoms suggestive of displaced rib or costochondritis. Sara has had costochondritis in the past with similar symptoms. (3) Primary hyperaldosteronism: Plan: Continue spironolactone 25 mg daily. (4) Hypertension: Plan: Controlled. Tolerating current therapy well. Admission and Anticipated Discharge Date Admission Date: March 31, 2024 Subjective No acute events overnight. Continues to endorse some chest discomfort and tenderness along the left side of the sternum extending toward the left axilla. No rash. Symptoms are exacerbated by deep breaths. Overall symptoms are improving. BP is acceptable. Sara feels well and would like to be discharged home today. I discussed the plan of care with Dr. Cardenas this AM. Review of Systems Review of Systems: All systems reviewed & are unremarkable except as noted in HPI & below Physical Exam Constitutional: well developed; no acute distress Eyes: no scleral abnormality and no corneal abnormality ENMT: Mouth: no oral mucosal abnormality and oral mucous membranes not dry Neck: normal visual inspection and trachea midline Respiratory: normal respiratory effort Auscultation: lungs clear to auscultation bilaterally Cardiovascular: Rate/Rhythm: regular rate Heart Sounds: normal S1 and normal S2 Extremities: no edema Musculoskeletal: Extremities: no cyanosis and no clubbing Skin: normal turgor; no lesions Neurologic: Motor/Sensory: no tremor and no asterixis Psychiatric: Orientation: alert and oriented x 3 Results & Data Vital Signs (Past 12 Hours) Vital Signs Temp Pulse Pulse Resp BP Pulse Ox O2 Del Method 04/02/24 07:18 37.1 C 65 18 128/76 97 Room Air 04/02/24 02:50 36.6 C 67 18 129/76 95 Room Air 04/01/24 22:46 68 Laboratory Results Laboratory Results - last 24 hr 04/02/24 05:56 Sodium 137 Potassium 3.8 D Chloride 107 Carbon Dioxide 21 Anion Gap 9 BUN 27 H Creatinine 1.30 H Est Cr Clr Drug Dosing 44.9 eGFR 45.63 BUN/Creatinine Ratio 20.8 H Glucose 101 H Calcium 9.2 PG Care Time/CCT Total # of Minutes Spent Total Time Spent with Patient: Total time spent is greater than 50% in coordination of care (as documented) at patient's floor/unit and/or counseling patient: Coding Level of Care Code 33411 SUB INP/OBS CARE 3/50MIN Diagnoses Hyperkalemia E87.5 Atypical chest pain R07.89 Primary hyperaldosteronism E26.09 Hypertension I10 Hypertension type: unspecified (4) Hypertension Hypertension type: unspecified Qualified Code(s): I10 - Essential (primary) hypertension
--- NOTE | 2024-04-03 10:32 | Electrocardiogram Report ---
Test Reason : Blood Pressure : */* mmHG Vent. Rate : 71 BPM Atrial Rate : 71 BPM P-R Int : 172 ms QRS Dur : 80 ms QT Int : 396 ms P-R-T Axes : 54 20 44 degrees QTcB Int : 430 ms Poor data quality, interpretation may be adversely affected Normal sinus rhythm Normal ECG When compared with ECG of 31-Mar-2024 16:22, Criteria for Anterior infarct are no longer Present Confirmed by Petros Harrington ([id number]) on 04/03/2024 10:31:50 AM Referred By: REFERRED SELF Confirmed By: Petros Harrington
== END 2024-04-02 13:26 | disposition home or self-care (01) | DRG 641 ==
LOC: ED 16:07 → 2S 19:12 → SUATTDRO 19:12 → 2S 21:48